=== PATIENT | male | born 1970 | race Caucasian/White ===

== ENCOUNTER 2017-03-07 14:03 | Day surgery (SDC) | payer OTHER ==
--- NOTE | ~2017-03-07 | OP ---
Record Of Operation [facility] [address] [place]. [address] NAME: CAIT LARA : 66 STATUS : [facility]#: [id number] AGE: 46 ADM/REG DATE : 03/07/17 MR#: [id number] REPORT SERV DATE: 03/10/17 DICTATED BY: MARK SANTILLAN DATE: 03/10/17 REPORT STATUS : Draft TRANSCRIBED BY: MODL DATE: 03/10/17 DATE OF PROCEDURE: 03/07/2017 PREOPERATIVE DIAGNOSIS: Recurrent sebaceous cyst with abscess, mid back. POSTOPERATIVE DIAGNOSIS: Recurrent sebaceous cyst with abscess, mid back. PROCEDURE: Incision and drainage, irrigation, culture, and packing of recurrent sebaceous cyst, mid back. SURGEON: Mark Santillan M.D. DESCRIPTION OF OPERATIVE PROCEDURE: The patient was brought to operating suite, placed in supine position, underwent monitored anesthetic care. He was rolled into the lateral decubitus position and the large abscess of the midback was noted. Cultures were obtained. 0.5% Marcaine with epinephrine was utilized as supplemental local anesthesia in the skin and subcutaneous tissues. Incision was made over the abscess cavity with a large amount of sebaceous material and purulent material removed. It was irrigated copiously and any loculations were broken up bluntly. Then vaginal packing was placed. An ABD sponges and tape used to secure the dressing. The patient tolerated the procedure well and he was returned to PACU in stable condition. At the termination of the procedure sponge, needle, lap, and instrument counts were correct x3. ESTIMATED BLOOD LOSS: 20 to 25 mL. GUILLERMO/JOELLEL Mark Santillan M.D. / [id number] CC: Chacorta Dias M.D.
[2017-03-07 16:08] LABS: BASOPHILS 0.3 %; BASOPHILS ABSOLUTE 0.04 10/3/uL (0.0-0.16); EOSINOPHILS 6.4 %; EOSINOPHILS ABSOLUTE 0.85 10/3/uL (0.0-0.53); HEMATOCRIT 41.4 % (40.0-51.0); HEMOGLOBIN 13.9 g/dL (13.6-17.8); IMMATURE GRANULOCYTES 0.3 %; IMMATURE GRANULOCYTES ABSOLUTE 0.04 10/3/uL (0.0-0.11); LYMPHOCYTES 20.8 %; LYMPHOCYTES ABSOLUTE 2.75 10/3/uL (0.67-4.30); MEAN CORPUS HGB CONC 33.6 g/dL (32.0-36.0); MEAN CORPUSCULAR VOLUME 89.4 fL (80-100); MONOCYTES 7.8 %; MONOCYTES ABSOLUTE 1.03 10/3/uL (0.21-1.20); NEUTROPHILS 64.4 %; PLATELET COUNT 398 10/3/uL (150-400); RBC DISTRIBUTION WIDTH 12.5 % (12.0-16.0); RED CELL COUNT 4.63 10/6/uL (4.7-6.1); WHITE BLOOD CELLS 13.2 10/3/uL (4.5-10.5)
[2017-03-07 16:09] LABS: MANUAL DIFF NO %
[2017-03-07 16:18] LABS: BUN (BLOOD UREA NITROGEN) 10 MG/DL (6-23); CALCIUM, SERUM 8.6 MG/DL (8.5-10.4); CHLORIDE, SERUM 99 MMOL/L (96-112); CO2 (CARBON DIOXIDE) 27 MMOL/L (24-34); CREATININE 1.02 MG/DL (0.70-1.30); GFR AFRICAN AMERICAN 100 ML/MIN (>=60); GFR NON AFRICAN AMERICAN 87 ML/MIN (>=60); GLUCOSE, SERUM 91 MG/DL (60-99); POTASSIUM, SERUM 3.7 MMOL/L (3.5-5.3); SODIUM, SERUM 138 MMOL/L (135-148)
[2017-03-29] MEDS ORDERED: NORCO1 TA1 PO (11:59)
== END 2017-03-07 19:30 | disposition home or self-care (01) ==
LOC: SDC 14:03
PROVIDERS: Specialist
PROC: 0J970ZZ Drainage of Back Subcutaneous Tissue and Fascia, Open Approach (ICD-10-PCS; principal; 2017-03-07 15:45)
DX: L72.3 Sebaceous cyst (principal)
CPT/HCPCS: 80048; 85025; 87015; 87070; 87075; 87102; 87116; 87205; J0690; J3010

== ENCOUNTER 2017-04-06 06:25 | Day surgery (SDC) | payer OTHER ==
[2017-04-03 09:39] LABS: HEMATOCRIT 41.8 % (40.0-51.0)
--- NOTE | ~2017-04-06 | OP ---
Record Of Operation [facility] [address] [place]. [address] NAME: CAIT LARA : 66 STATUS : [facility] [place] PAT#: [id number] AGE: 46 ADM/REG DATE : 04/06/17 MR#: [id number] REPORT SERV DATE: 04/07/17 DICTATED BY: MARK SANTILLAN DATE: 04/07/17 REPORT STATUS : Draft TRANSCRIBED BY: MODL DATE: 04/07/17 DATE OF PROCEDURE: 04/06/2017 PREOPERATIVE DIAGNOSIS: Status post incision and drainage of recurrent ruptured sebaceous cyst of the midback. POSTOPERATIVE DIAGNOSIS: Status post incision and drainage of recurrent ruptured sebaceous cyst of the midback. PROCEDURE: Wide local excision of ruptured sebaceous cyst/abscess site. DESCRIPTION OF OPERATIVE PROCEDURE: The patient was brought to the operating suite, placed in supine position, underwent satisfactory general endotracheal anesthesia. The patient was then rolled in the prone position with appropriate padding placed. The upper midback revealed the previous ruptured cyst, which had granulating cavity. A wide ellipse was marked with a pen and then 0.5% Marcaine with epinephrine infiltrated. A wide local elliptical excision was performed dissecting through the skin and inflammatory subcutaneous tissue to excise the central aspect of the cystic wall and the ruptured cyst site. Then, flaps were elevated laterally in the subcutaneous tissue plane. Hemostasis was assured with the Bovie. The patient had extreme amount of tension across the closure site, therefore 2-0 Vicryl was used to approximate the subcutaneous tissue, and then multiple interrupted sutures of 2-0 Ethilon in a vertical mattress approach were utilized to approximate the skin. However, I was not able to completely approximate the subcutaneous tissue and skin to its full extent, and there was an opening left in the midline for drainage with intent. The patient would heal by secondary intention eventually. Appropriate dressing placed. Patient tolerated the procedure well and was returned to PACU in stable condition. At the termination of the procedure, sponge, needle, lap, and instrument counts were correct x3. ESTIMATED BLOOD LOSS: 20 mL. GUILLERMO/MURPHY Mark Santillan M.D. / [id number] CC: Mark Santillan M.D. Record Of Operation [address] [place]. [address] NAME: CAIT LARA : 66 STATUS : [facility] [place] PAT#: [id number] AGE: 46 ADM/REG DATE : 04/06/17 MR#: [id number] REPORT SERV DATE: 04/07/17 DICTATED BY: MARK SANTILLAN DATE: 04/07/17 REPORT STATUS : Draft TRANSCRIBED BY: MODL DATE: 04/07/17 Bony Sharpe M.D.
[~2017-04-06 06:25] MED LIST: NORCO1 TA1 PO
== END 2017-04-06 23:59 | disposition home or self-care (01) ==
LOC: MSC 06:25
PROVIDERS: Specialist
PROC: 0JB70ZZ Excision of Back Subcutaneous Tissue and Fascia, Open Approach (ICD-10-PCS; 2017-04-06)
PROC: 0JQ70ZZ Repair Back Subcutaneous Tissue and Fascia, Open Approach (ICD-10-PCS; principal; 2017-04-06 08:30)
DX: L72.0 Epidermal cyst (principal); K21.9 Gastro-esophageal reflux disease without esophagitis
CPT/HCPCS: 85014; 85018; 88304; A9270-GY; J0330; J0690; J2250; J2405; J2710; J3010